=== PATIENT | female | born 1960 | race Caucasian/White ===

== ENCOUNTER 2023-05-14 15:21 | Outpatient (OUT) | payer MEDICARE, MEDICAID, SELFPAY ==
--- NOTE | 2023-05-14 15:30 | XR_ITS ---
The [address] [address] Patient Name: SILVERIO BOBO MRN: [id number] date: 1960 Sex: F Assigned Patient Location: [facility] Current Patient Location: Accession/Order Number: [id number] Exam Date: 05/14/2023 15:35 Report Date: 05/15/2023 07:40 At the request of: CARLOS HARVEY Procedure: XR elbow RT min 3V PROCEDURE: XR elbow RT min 3V COMPARISON: None. HISTORY: Right elbow injury, Right elbow swelling FINDINGS: BONES:No acute fracture or dislocation. Mild degenerative changes. Mild enthesopathic spurring triceps insertion on the olecranon process SOFT TISSUES:Negative. No visible soft tissue swelling. EFFUSION:None visible. OTHER: Negative. XR/XR elbow RT min 3V IMPRESSION: Mild degenerative changes Electronically authenticated by: ASH MOTTA Date: 05/15/2023 07:40
== END 2023-05-14 15:22 | disposition home or self-care (01) ==
PROVIDERS: PCP Family Medicine; Visit Provider Nurse Practitioner
DX: M25.421 Effusion, right elbow (principal); S59.901A Unspecified injury of right elbow, initial encounter
CPT/HCPCS: 73080

== ENCOUNTER 2023-05-14 16:30 | Emergency (ER) | payer OTHER, MEDICARE, SELFPAY ==
[2023-05-14] VITALS (12 sets, daily range): BP systolic 119–156; BP diastolic 80–101; PULSE 79–86; RESP 13–24; TEMP 36.6; O2SAT 93–97; BMI 33.3
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
== END 2023-05-14 17:54 | disposition home or self-care (01) ==
PROVIDERS: Emergency Provider Emergency Medicine; PCP Family Medicine
DX: S09.8XXA Other specified injuries of head, initial encounter (principal); M25.521 Pain in right elbow; V43.62XA Car passenger injured in collision with other type car in traffic accident, initial encounter
CPT/HCPCS: 70450; 71045; 72125; 72170; 73080; 73090; 99284

== ENCOUNTER 2023-12-31 18:27 | Emergency (ER) | payer MEDICARE, MEDICAID, SELFPAY ==
[2023-12-31 18:37] VITALS: BP 124/78; PULSE 79; TEMP 36.6; O2SAT 94; BMI 31.3
[2023-12-31 18:49] VITALS: PULSE 80
[2023-12-31 18:50] VITALS: PULSE 80; O2SAT 97
[2023-12-31 18:51] VITALS: BP 125/82; PULSE 81
--- NOTE | 2023-12-31 19:06 | XR_ITS ---
The [address] [address] Patient Name: SILVERIO BOBO MRN: [id number] date: 1960 Sex: F Assigned Patient Location: ER Current Patient Location: ER Accession/Order Number: [id number] Exam Date: 12/31/2023 19:20 Report Date: 12/31/2023 19:47 At the request of: JOHAN BOLANOS Procedure: XR chest 1V EXAM: XR chest 1V at 1917 hours HISTORY: covid, altered mentation COMPARISON: 05/14/2023 TECHNIQUE: AP upright portable chest x-ray FINDINGS: The heart is not enlarged and the vasculature is not distended. No acute infiltrate, effusion or pneumothorax is identified. The osseous structures are grossly intact. XR/XR chest 1V IMPRESSION: No acute infiltrate or evidence of cardiac decompensation. Given the differences in technique and projection, the overall appearance of the chest is essentially unchanged. Electronically authenticated by: KATHY CAN Date: 12/31/2023 19:47
--- NOTE | 2023-12-31 19:06 | ECG_ITS ---
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
--- NOTE | 2023-12-31 19:06 | CT_ITS ---
The [address] [address] Patient Name: SILVERIO BOBO MRN: [id number] date: 1960 Sex: F Assigned Patient Location: ER Current Patient Location: ER Accession/Order Number: [id number] Exam Date: 12/31/2023 19:20 Report Date: 12/31/2023 19:54 At the request of: JOHAN BOLANOS Procedure: CT head/brain wo con EXAM: CT scan of the head without contrast. Dose reduction technique used: Automated exposure control and/or adjustment of the mA and/or kV according to patient size and/or use of iterative reconstruction technique. REASON FOR EXAM: altered mentation COMPARISON: CT scan dated 05/14/2023 FINDINGS: No intracranial hemorrhage, mass effect, midline shift, fractures or evidence of acute ischemic infarct. No hydrocephalus. Mild generalized cerebral and cerebellar volume loss. Mild small vessel gliosis. Paranasal sinuses and mastoid air cells are clear. Remainder unremarkable. CT/CT head/brain wo con IMPRESSION: No acute intracranial abnormalities. Electronically authenticated by: ESTEFANÍA GREEN Date: 12/31/2023 19:54
[2023-12-31 19:14] LABS: Basophils Absolute Auto 0.1 10^3/uL (0.0-0.1); Basophils Percent Auto 0.5 % (0.2-2.0); Eosinophils Percent Auto 0.4 % (0.9-7.0); Hematocrit 35.4 % (36.0-48.0); Hemoglobin 12.1 g/dL (12.0-16.0); Immature Granulocytes Abs Auto 0.03 10^3/uL (0.00-0.03); Immature Granulocytes Pct Auto 0.3 % (0.0-0.5); Lymphocytes Absolute Auto 2.2 10^3/uL (1.2-3.8); Lymphocytes Percent Auto 20.9 % (20.5-60.0); Mean Corpuscular HGB Conc 34.2 g/dL (29.9-35.2); Mean Corpuscular Hemoglobin 31.7 pg (26.7-34.0); Mean Corpuscular Volume 92.7 fL (81.0-99.0); Mean Platelet Volume 11.8 fL (9.5-13.5); Monocytes Percent Auto 9.6 % (1.7-12.0); Neutrophils Absolute Auto 7.3 10^3/uL (1.4-6.5); Neutrophils Percent Auto 68.3 % (43.0-75.0); Platelet Count 221 10^3/uL (150-450); Red Blood Count 3.82 10^6/uL (4.20-5.40); Red Cell Distribution Width 11.6 % (11.0-15.0); White Blood Count 10.7 10^3/uL (4.0-11.0)
--- NOTE | 2023-12-31 19:14 | ED.AMS1 ---
HPI - Altered Mental Status General Chief Complaint: Altered Mental Status Stated Complaint: covid pos-confusion, disoriented, slurring Time Seen by Provider: 12/31/23 18:54 Source: patient and family Mode of arrival: Wheelchair Limitations: no limitations History of Present Illness HPI narrative: The patient was brought in by her sister for evaluation. The sister gives majority of the history of present illness the patient is able to intervene, give her HPI and review of systems and answer all questions. The patient tested positive for COVID yesterday although symptoms began about 4 days ago. She was started on Paxlovid. She has symptoms typical for recent COVID infection - Cough with some thick sputum, fatigue, nausea without vomiting, generalized muscle aches, a little bit of sore throat and ear pain. No additional medications such as Antibiotics or inhalers. She is a long-term smoker who quit about a year ago after she developed COVID infection. At that time, according to the sister, the patient had an associated pneumonia. The patient's sister told me that she controls the patient's psych medications that there is no risk that she had any kind of inappropriate dosing of those meds. Additionally there is no history of alcohol or substance abuse to account for this patient's altered sensorium. According to the sister, the patient has been seeming off , almost as if she is a little bit drunk . She has a long history of psychiatric abnormality with some associated altered behavior. The sister is unsure whether this is simply another flare of that. Related Data Home Medications ?Medication ?Instructions ?Recorded ?Confirmed bupropion HCl 300 mg 24 hr tablet, 300 mg PO QDAY 12/31/23 12/31/23 extended release escitalopram oxalate 5 mg tablet 5 mg PO QDAY 12/31/23 12/31/23 haloperidol 10 mg tablet 30 mg PO .qhs 12/31/23 12/31/23 lorazepam 1 mg tablet 1 mg PO Q8H 12/31/23 12/31/23 nirmatrelvir 150 mg-ritonavir 100 1 ea PO QDAY 12/31/23 12/31/23 mg tablets in a dose pack (Paxlovid) tizanidine 4 mg tablet 4 mg PO Q6H 12/31/23 12/31/23 zolpidem 10 mg tablet 10 mg PO .qhs 12/31/23 12/31/23 Allergies Allergy/AdvReac Type Severity Reaction Status Date / Time bee venom protein (honey bee) Allergy Unknown Verified 12/31/23 18:37 codeine Allergy Unknown Verified 12/31/23 18:37 NSAIDS (Non-Steroidal Allergy Unknown Verified 12/31/23 18:37 Anti-Inflamma Tricyclic Antidepressants Allergy Unknown Verified 12/31/23 18:37 and Tricy prednisone AdvReac Verified 12/31/23 18:37 Exam Narrative Exam Narrative: Nurses notes and vital signs reviewed and patient is not hypoxic. Afebrile General: Well-appearing and in no apparent distress. Skin: Warm, dry, no pallor noted. No rash. Head: Normocephalic, atraumatic. Neck: Supple, non-tender. No cervical lymphadenopathy. No meningismus. Eye: Pupils are equal, round and EOMI. No scleral icterus. Ears, Nose, Mouth, and Throat: TM are clear, no posterior oropharynx erythema or nasal mucosal hypertrophy, uvula is mid-line Oral mucosa is moist Cardiovascular: Regular Rate and Rhythm without murmur, gallop or rub. Respiratory: No accessory muscle use or respiratory distress. Lungs are clear to auscultation, no wheezing, rales or rhonchi Musculoskeletal: normal ROM, no calf or popliteal tenderness, no lower extremity edema/swelling GI: Abdomen is soft, non-distended. Normal bowel sounds. No tenderness to palpation. No rebound, guarding, or rigidity noted. Neurological: A&O x4. No cranial nerve dysfunction observed. No truncal ataxia. Moves all extremities. Sensation intact. Psychiatric: Cooperative and interactive. Normal mood and affect. Constitutional Vital Signs, click to edit/add: Last Vital Signs Temp 98 F 12/31/23 18:37 Pulse 81 12/31/23 18:51 Resp 16 12/31/23 18:37 BP 125/82 12/31/23 18:51 Pulse Ox 97 12/31/23 18:50 O2 Del Method Room Air 12/31/23 18:37 Course Vital Signs Vital signs: Vital Signs Temperature 98 F 12/31/23 18:37 Pulse Rate 79 12/31/23 18:37 Respiratory Rate 16 12/31/23 18:37 Blood Pressure 124/78 12/31/23 18:37 Pulse Oximetry 94 L 12/31/23 18:37 Oxygen Delivery Method Room Air 12/31/23 18:37 Temperature 98 F 12/31/23 18:37 Pulse Rate 81 12/31/23 18:51 Respiratory Rate 16 12/31/23 18:37 Blood Pressure 125/82 12/31/23 18:51 Pulse Oximetry 97 12/31/23 18:50 Oxygen Delivery Method Room Air 12/31/23 18:37 MDM - Altered Mental Status MDM Narrative Medical decision making narrative: Patient was placed on secured entrance monitor and EKG obtained. Blood drawn and sent for evaluation. Urine was also ordered to be obtained and sent for testing. She was sent for CT scanning of the brain and chest x-ray was also obtained. The patient was ordered to receive a liter of normal saline IV fluid. Workup in the ED was unremarkable. Head CT and CXR without any worrisome acute findings, per radiologist. CBC normal. Na slightly low at 130 -discussed with patient and sister the importance of good nutrition. Normal renal function, negative LFTs. Patient has Covid. Patient advised to rest, stay at home, practice social distancing, take Motrin and Tylenol for pain and fever if not allergic, stay well hydrated with Gatorade or similar drinks if vomiting or eat as tolerated if not and take any meds as prescribed. Reviewed reasons to return including rapid increase in respiratory rate, shortness of breath, confusion, inability to keep down sips of swallowed liquids for more than 24 hours. Asked patient to encourage any ill contacts to stay home and practice similar advice. Lab Data Attestation: I reviewed the patient's lab results. Labs: Lab Results 12/31/23 12/31/23 Range/Units 18:59 19:34 WBC 10.7 (4.0-11.0) 10^3/uL RBC 3.82 L (4.20-5.40) 10^6/uL Hgb 12.1 (12.0-16.0) g/dL Hct 35.4 L (36.0-48.0) % MCV 92.7 (81.0-99.0) fL MCH 31.7 (26.7-34.0) pg MCHC 34.2 (29.9-35.2) g/dL RDW 11.6 (11.0-15.0) % Plt Count 221 (150-450) 10^3/uL MPV 11.8 (9.5-13.5) fL Neut % (Auto) 68.3 (43.0-75.0) % Lymph % (Auto) 20.9 (20.5-60.0) % [place] % (Auto) 9.6 (1.7-12.0) % Eos % (Auto) 0.4 L (0.9-7.0) % Baso % (Auto) 0.5 (0.2-2.0) % Neut # (Auto) 7.3 H (1.4-6.5) 10^3/uL Lymph # (Auto) 2.2 (1.2-3.8) 10^3/uL [place] # (Auto) 1.0 H (0.3-0.8) 10^3/uL Eos # (Auto) 0.0 (0.0-0.7) 10^3/uL Baso # (Auto) 0.1 (0.0-0.1) 10^3/uL Abs Immat Gran (auto) 0.03 (0.00-0.03) 10^3/uL Imm/Tot Granulo (auto) 0.3 (0.0-0.5) % Sodium 130 L (136-145) mmol/L Potassium 4.7 (3.5-5.1) mmol/L Chloride 93 L (98-107) mmol/L Carbon Dioxide 28.6 (21.0-32.0) mmol/L Anion Gap 13.1 BUN 20.0 H (7.0-18.0) mg/dL Creatinine 0.80 (0.55-1.02) mg/dL Est GFR ( Amer) >60 (>=60) Est GFR (Non-Af Amer) >60 (>=60) BUN/Creatinine Ratio 25.0 Glucose 118 H (74-106) mg/dL Calcium 9.0 (8.5-10.1) mg/dL Total Bilirubin 0.5 (0.2-1.0) mg/dL AST 23 (15-37) U/L ALT 22 (14-59) U/L Alkaline Phosphatase 72 (46-116) U/L Total Protein 7.3 (6.4-8.2) g/dL Albumin 3.6 (3.4-5.0) g/dL Globulin 3.7 g/dL Albumin/Globulin Ratio 1.0 Urine Color Yellow (YELLOW) Urine Clarity Clear (CLEAR) Urine pH 6.0 (5.0-9.0) Ur Specific [place] 1.025 (1.005-1.025) Urine Protein Negative (NEG/TRACE) mg/dL Urine Glucose (UA) Negative (NEGATIVE) mg/dL Urine Ketones Negative (NEGATIVE) mg/dL Urine Occult Blood Negative (NEGATIVE) Urine Nitrite Negative (NEGATIVE) Urine Bilirubin Negative (NEGATIVE) Urine Urobilinogen 0.2 (0.2-1.0) EU/dL Ur Leukocyte Esterase Negative (NEGATIVE) Imaging Data CT head and CXR: Attestation: I have reviewed the pertinent imaging results. Radiologist's impression: ITS Impressions Chest X-Ray 12/31/23 19:06 IMPRESSION: No acute infiltrate or evidence of cardiac decompensation. Given the differences in technique and projection, the overall appearance of the chest is essentially unchanged. Electronically authenticated by: KATHY CAN Date: 12/31/2023 19:[address] 12/31/23 19:06 IMPRESSION: No acute intracranial abnormalities. Electronically authenticated by: ESTEFANÍA GREEN Date: 12/31/2023 19:54 ECG Data Attestation: I personally reviewed and interpreted this ECG as follows: Interpretation: EKG interpretation: Emergency Department physician interpretation. Normal sinus rhythm at 78bpm. Normal axis, normal intervals and no ST segment elevation or depression. Discharge Plan Discharge Stand Alone Forms: Portal Instructions Chief Complaint: Altered Mental Status Clinical Impression: COVID, Altered mental status Patient Disposition: Home, Self-Care Time of Disposition Decision: 20:53 Prescriptions / Home Meds: No Action bupropion HCl 300 mg tablet extended release 24 hr 300 mg PO QDAY escitalopram oxalate 5 mg tablet 5 mg PO QDAY haloperidol 10 mg tablet 30 mg PO .qhs lorazepam 1 mg tablet 1 mg PO Q8H Paxlovid 150-100 mg tablets,dose pack 1 ea PO QDAY tizanidine 4 mg tablet 4 mg PO Q6H zolpidem 10 mg tablet 10 mg PO .qhs Print Language: Nepali Instructions: COVID-19 (Coronavirus Disease 2019) (ED), Safely Care for Someone Who Has COVID-19 (ED), How to Recover from COVID-19 at Home (ED) Referrals: CHRIS PHELPS [Primary Care Provider] - 1 week
[2023-12-31 19:25] LABS: Alanine Aminotransferase 22 U/L (14-59); Albumin Level 3.6 g/dL (3.4-5.0); Alkaline Phosphatase 72 U/L (46-116); Anion Gap 13.1; Aspartate Amino Transferase 23 U/L (15-37); Bilirubin Total 0.5 mg/dL (0.2-1.0); Carbon Dioxide 28.6 mmol/L (21.0-32.0); Chloride 93 mmol/L (98-107); Estimated GFR (African America >60 (>=60); Estimated GFR (Non-African Ame >60 (>=60); Globulin 3.7 g/dL; Glucose 118 mg/dL (74-106); Potassium 4.7 mmol/L (3.5-5.1); Sodium 130 mmol/L (136-145); Total Protein 7.3 g/dL (6.4-8.2)
[2023-12-31] MEDS: 0.9 % SODIUM CHLORIDE 1,000 ML 1000 ML IV (19:40)
[2023-12-31 19:53] LABS: Bilirubin Urine NEGATIVE (NEGATIVE); Blood Urine NEGATIVE (NEGATIVE); Clarity Urine CLEAR (CLEAR); Color Urine YELLOW (YELLOW); Glucose Urine UA NEGATIVE (NEGATIVE); Ketones Urine NEGATIVE (NEGATIVE); Leukocyte Esterase Urine NEGATIVE (NEGATIVE); Nitrite Urine NEGATIVE (NEGATIVE); Protein Urine NEGATIVE (NEG/TRACE); Specific Gravity Urine 1.025 (1.005-1.025); Urine Microscopic Indicated NO; Urobilinogen Urine 0.2 EU/dL (0.2-1.0)
== END 2023-12-31 20:42 | disposition home or self-care (01) ==
PROVIDERS: Emergency Provider Emergency Medicine; PCP Family Medicine
DX: U07.1 COVID-19 (principal); R41.82 Altered mental status, unspecified; Z87.891 Personal history of nicotine dependence; Z86.16 Personal history of COVID-19; Z87.01 Personal history of pneumonia (recurrent)
CPT/HCPCS: 36415; 70450; 71045; 80053; 81003; 85025; 93005; 99285

== ENCOUNTER 2024-03-18 10:17 | Emergency (ER) | payer MEDICARE, MEDICAID, SELFPAY ==
[2024-03-18 10:22] VITALS: BP 117/90; PULSE 95; TEMP 36.8; O2SAT 95; BMI 31.9
--- NOTE | 2024-03-18 10:32 | ED_ITS ---
HPI HPI - Head Injury General Chief complaint: Fall Stated complaint: HEAD INJURY/ FALL Time Seen by Provider: 03/18/24 10:28 Source: patient Mode of arrival: walk-in History of Present Illness HPI Narrative: 63-year-old female presents for injury to her head. She fell backwards and hit the back of her head on a radiator this morning. There was some bleeding which has now stopped. She has a headache and neck pain but she always has neck pain. She is not on a blood thinners and no other injury was sustained. Related Data Home Medications ?Medication ?Instructions ?Recorded ?Confirmed bupropion HCl 300 mg 24 hr tablet, 300 mg PO QDAY 12/31/23 12/31/23 extended release escitalopram oxalate 5 mg tablet 5 mg PO QDAY 12/31/23 12/31/23 haloperidol 10 mg tablet 30 mg PO .qhs 12/31/23 12/31/23 lorazepam 1 mg tablet 1 mg PO Q8H 12/31/23 12/31/23 nirmatrelvir 150 mg-ritonavir 100 1 ea PO QDAY 12/31/23 12/31/23 mg tablets in a dose pack (Paxlovid) tizanidine 4 mg tablet 4 mg PO Q6H 12/31/23 12/31/23 zolpidem 10 mg tablet 10 mg PO .qhs 12/31/23 12/31/23 Allergies Allergy/AdvReac Type Severity Reaction Status Date / Time bee venom protein (honey bee) Allergy Unknown Verified 12/31/23 18:37 codeine Allergy Unknown Verified 12/31/23 18:37 NSAIDS (Non-Steroidal Allergy Unknown Verified 12/31/23 18:37 Anti-Inflamma Tricyclic Antidepressants Allergy Unknown Verified 12/31/23 18:37 and Tricy prednisone AdvReac Verified 12/31/23 18:37 Opioid HPI Opioid Management Most Recent Pain and Opioid Data: Last Pain Scale 4 05/14/23 16:53 Review of Systems ROS Narrative A ten point review of systems is negative except as noted above. Exam Narrative Exam Narrative: Nurses note and vital signs reviewed and patient is not hypoxic. General: The patient appears well and in no apparent distress. Patient is resting comfortably on cart. Skin: Warm, dry, no pallor noted. There is no rash noted. Head: Normocephalic, transverse linear 5 cm laceration present on the occipital scalp. No active bleeding Eye: Normal conjunctiva, no drainage Ears, Nose, Mouth, and Throat: oral mucosa is moist. Nares patent. Cardiovascular: Regular Rate and Rhythm Respiratory: Patient is in no distress, no accessory muscle use, lungs are clear to auscultation, no wheezing, rales or rhonchi Back: non-tender GI: Soft and nontender Musculoskeletal: The patient has no evidence of calf tenderness, no pitting edema, symmetrical pulses noted bilaterally Neurological: Awake and alert Psychiatric: Cooperative Constitutional Vital Signs, click to edit/add: Last Vital Signs Temp 98.2 F 03/18/24 10:22 Pulse 95 H 03/18/24 10:22 Resp 18 03/18/24 10:22 BP 117/90 03/18/24 10:22 Pulse Ox 95 03/18/24 10:22 Course Vital Signs Vital signs: Vital Signs Temperature 98.2 F 03/18/24 10:22 Pulse Rate 95 H 03/18/24 10:22 Respiratory Rate 18 03/18/24 10:22 Blood Pressure 117/90 03/18/24 10:22 Pulse Oximetry 95 03/18/24 10:22 Temperature 98.2 F 03/18/24 10:22 Pulse Rate 95 H 03/18/24 10:22 Respiratory Rate 18 03/18/24 10:22 Blood Pressure 117/90 03/18/24 10:22 Pulse Oximetry 95 03/18/24 10:22 MDM - Head Injury MDM Narrative Medical decision making narrative: CT brain and C-spine are negative. [place] to be removed in 10 days. Findings were discussed with the patient and her family. Differential Diagnosis Differential diagnosis: Likely epidural hematoma, subarachnoid hematoma, subdural hematoma and other (Laceration) Imaging Data CT scan - head: Radiologist's impression: ITS Impressions Head CT 03/18/24 11:08 IMPRESSION: 1. Posterior parietal scalp soft tissue swelling and laceration with skin mis. 2. No acute intracranial hemorrhage or acute large territory ischemia on noncontrast CT. If the patient has a focal neurologic deficit or there is clinical suspicion for acute cerebrovascular accident, brain MRI would be recommended for further evaluation. Electronically authenticated by: JIM SANTIAGO Date: 03/18/2024 12:[address] 03/18/24 11:09 IMPRESSION: 1. No acute fracture or traumatic malalignment of the cervical spine. 2. Moderate degenerative change of the cervical spine. Electronically authenticated by: VERONA CRAWFORD Date: 03/18/2024 12:05 Discharge Plan Discharge Stand Alone Forms: Portal Instructions Chief Complaint: Fall Clinical Impression: Laceration of scalp Patient Disposition: Home, Self-Care Time of Disposition Decision: 12:18 Condition: Good Mode of Transportation: Private Vehicle Prescriptions / Home Meds: No Action bupropion HCl 300 mg tablet extended release 24 hr 300 mg PO QDAY escitalopram oxalate 5 mg tablet 5 mg PO QDAY haloperidol 10 mg tablet 30 mg PO .qhs lorazepam 1 mg tablet 1 mg PO Q8H Paxlovid 150-100 mg tablets,dose pack 1 ea PO QDAY tizanidine 4 mg tablet 4 mg PO Q6H zolpidem 10 mg tablet 10 mg PO .qhs Print Language: [place] Islander Instructions: Laceration (ED), Staple Care (ED) Additional Instructions: [place] to be removed in 10 days Referrals: CHRIS PHELPS [Primary Care Provider] - 1 week Procedures ED Procedure Instructions Procedures Procedures: The following procedure was performed by me after topical anesthetic had been applied. Betadine swab was carried out x 3 and then 6 mis were placed resulting in good skin reapproximation. She tolerated the procedure well, no complications.
[2024-03-18] MEDS: LIDOCAINE/EPINEPHRINE/TETRACAINE 3 ML GEL.PF.APP TOPICAL ×2 (10:38)
--- NOTE | 2024-03-18 11:08 | CT_ITS ---
The [address] [address] Patient Name: SILVERIO BOBO MRN: [id number] date: 1960 Sex: F Assigned Patient Location: ER Current Patient Location: ER Accession/Order Number: [id number] Exam Date: 03/18/2024 11:44 Report Date: 03/18/2024 12:12 At the request of: JENELLE SANDHU Procedure: CT head/brain wo con EXAM: CT head/brain wo con HISTORY: Fall. Blacked out which caused patient's fall. Patient back of head on radiator with laceration. Neck pain. COMPARISON: Comparison made to head CT dated 12/31/2023. TECHNIQUE: Contiguous transaxial images were obtained from skull base to vertex without administration of intravenous contrast. Dose reduction: mA and/or kV are were adjusted by automated exposure control software based upon patients height and weight. FINDINGS: There is a posterior parietal scalp soft tissue swelling and laceration with skin mis. The visualized globes and orbits are grossly normal. Visualized paranasal sinuses are clear. Bilateral mastoid air cells are clear. The ventricles and sulci are mildly prominent bilaterally. There is periventricular and deep subcortical white matter low attenuation consistent with small vessel ischemic disease. There is no intraparenchymal hemorrhage, extraaxial fluid collection, mass lesion, or acute large territory ischemia by noncontrast CT. CT/CT head/brain wo con IMPRESSION: 1. Posterior parietal scalp soft tissue swelling and laceration with skin mis. 2. No acute intracranial hemorrhage or acute large territory ischemia on noncontrast CT. If the patient has a focal neurologic deficit or there is clinical suspicion for acute cerebrovascular accident, brain MRI would be recommended for further evaluation. Electronically authenticated by: JIM SANTIAGO Date: 03/18/2024 12:12
--- NOTE | 2024-03-18 11:09 | CT_ITS ---
The [address] [address] Patient Name: SILVERIO BOBO MRN: [id number] date: 1960 Sex: F Assigned Patient Location: ER Current Patient Location: ER Accession/Order Number: [id number] Exam Date: 03/18/2024 11:44 Report Date: 03/18/2024 12:05 At the request of: JENELLE SANDHU Procedure: CT cervical spine wo con EXAM: CT cervical spine wo con HISTORY: fall COMPARISON: Cervical spine CT 05/14/2023. TECHNIQUE: Axial noncontrast CT imaging of the cervical spine was performed without intravenous contrast. This CT exam was performed using one or more of the following dose reduction techniques: Automated exposure control, adjustment of the MA and/or kV according to patient size, or use of iterative reconstruction technique. FINDINGS: Alignment: Similar slight reversal of normal cervical lordosis without substantial subluxation. Vertebrae: Vertebral body heights are maintained. No fracture. Craniocervical junction: No focal abnormality. Degenerative changes: Moderate degenerative changes cervical spine with multilevel moderate disc height loss with a prominent anterior osteophytic spurring and mild sclerotic degenerative endplate change. Multilevel prominent posterior disc osteophyte complexes with multilevel moderate uncovertebral and facet arthropathy. Advanced uncovertebral arthropathy is present bilaterally at C5-6 and C6-C7 with resulting in advanced left foraminal stenosis at C6-C7 and moderate right foraminal stenosis at this level. Multilevel mild to moderate canal stenosis greater involving the lower cervical spine. Additional Comments: Visualized portion of lung apices are clear. Mild atherosclerotic change. CT/CT cervical spine wo con IMPRESSION: 1. No acute fracture or traumatic malalignment of the cervical spine. 2. Moderate degenerative change of the cervical spine. Electronically authenticated by: VERONA CRAWFORD Date: 03/18/2024 12:05
== END 2024-03-18 12:29 | disposition home or self-care (01) ==
PROVIDERS: Emergency Provider Emergency Medicine; PCP Family Medicine
DX: S01.01XA Laceration without foreign body of scalp, initial encounter (principal); W19.XXXA Unspecified fall, initial encounter
CPT/HCPCS: 12002; 70450; 72125; 99284